=== PATIENT | female | born 1945 | race Two or more races ===

== ENCOUNTER 2022-04-16 18:18 | Emergency (ER) | payer OTHER ==
[~2022-04-16] VITALS: Ht 157.5 cm; Wt 65.8 kg
== END 2022-04-17 06:23 | disposition designated cancer center or children's hospital (05) ==
LOC: ER 18:18
DX: S27.0XXA Traumatic pneumothorax, initial encounter (principal); S42.032A Displaced fracture of lateral end of left clavicle, initial encounter for closed fracture; S22.32XA Fracture of one rib, left side, initial encounter for closed fracture; S00.03XA Contusion of scalp, initial encounter; S40.012A Contusion of left shoulder, initial encounter; W18.39XA Other fall on same level, initial encounter; Y93.89 Activity, other specified; Y92.89 Other specified places as the place of occurrence of the external cause; Y99.9 Unspecified external cause status